=== PATIENT | male | born 1970 | race African-American/Black ===

== ENCOUNTER 2021-05-21 12:17 | Inpatient (IN) | payer OTHER ==
[2021-05-21] MEDS ORDERED: BISMUTH SUBSALICYLATE 524 MG/30 ML PO PRN (13:06)
[2021-05-21] MEDS ORDERED: LOPERAMIDE HCL 2 MG CAPSULE PO PRN (13:06)
[2021-05-21] MEDS ORDERED: IBUPROFEN 400 MG TABLET (FP) PO PRN (13:06)
[2021-05-21] MEDS ORDERED: MAGNESIUM CITRATE 300 ML BOTTLE PO PRN (13:06)
[2021-05-21] MEDS ORDERED: ACETAMINOPHEN 325 MG TABLET (FP) PO PRN ×2 (13:06)
[2021-05-21] MEDS ORDERED: MAGNESIUM HYDROX 2400MG/30ML ORAL SUSPENSION 30 ML CUP PO PRN (13:06)
[2021-05-21] MEDS ORDERED: MENTHOL/PHENOL 1 EACH UD MM PRN (13:06)
[2021-05-21] MEDS ORDERED: ONDANSETRON *ODT* 4 MG TABLET SL PRN (13:06)
[2021-05-21] MEDS ORDERED: MAG HYDROX/AL HYDROX/SIMETH 30 ML UNIT-DOSE CUP PO PRN (13:06)
[2021-05-21 13:49] VITALS: BMI 23.6
[2021-05-21 16:13] LABS: HEMOGLOBIN 12.2 GM/dL (11.7-16.9); MCH 30.6 pg (25.7-33.7); MCHC 32.9 g/dl (32.0-35.9); MEAN PLT VOLUME 8.8 fl (7.5-11.1); PLATELET COUNT 265 10^3/uL (134-434); RBC 3.98 M/mm3 (4.00-5.60); WHITE BLOOD COUNT 7.7 K/mm3 (4.0-10.0)
[2021-05-21] MEDS ORDERED: DEXTROSE 50%-WATER - 25 GM/50 ML VIAL IVPUSH PRN (16:27)
[2021-05-21 17:15] LABS: ALBUMIN 3.5 g/dl (3.4-5.0); CALCIUM 8.5 mg/dL (8.5-10.1)
[2021-05-21 17:16] LABS: BLOOD UREA NITROGEN 14.3 mg/dL (7-18)
[2021-05-21 17:19] LABS: CREATININE 1.1 mg/dL (0.55-1.3)
[2021-05-21 17:20] LABS: TOT PROT 7.5 g/dl (6.4-8.2)
[2021-05-21 17:21] LABS: BILIRUBIN,TOTAL 0.8 mg/dL (0.2-1)
[2021-05-21] MEDS: INSULIN (NOVOLOG) ASPART 100 UNITS/ML 10ML VIAL SQ SCH ×2 (17:52→22:33)
[2021-05-21] MEDS: hydrOXYzine PAMOATE 25 MG CAPSULE (FP) PO SCH ×3 (17:52→22:33)
[2021-05-21] MEDS: PRENATAL VITAMINS W/ FOLIC ACID TABLET (FP) PO SCH (17:52)
[2021-05-21] MEDS: amLODIPine BESYLATE 5 MG TABLET (FP) PO SCH (17:52)
[2021-05-21] MEDS: MELATONIN 5 MG TABLETS PO SCH (22:32)
[2021-05-21] MEDS: THIAMINE HCL 100 MG TABLET (FP) PO SCH (22:33)
[2021-05-22] MEDS: hydrOXYzine PAMOATE 25 MG CAPSULE (FP) PO SCH ×5 (05:28→22:16)
[2021-05-22] MEDS: INSULIN (NOVOLOG) ASPART 100 UNITS/ML 10ML VIAL SQ SCH (07:35)
[2021-05-22] MEDS ORDERED: diazePAM 5 MG TABLET PO PRN (09:41)
[2021-05-22] MEDS ORDERED: chlordiazePOXIDE HCL 25 MG CAPSULE PO PRN (09:43)
[2021-05-22] MEDS: chlordiazePOXIDE HCL 25 MG CAPSULE PO SCH ×3 (10:06→22:17)
[2021-05-22] MEDS: PRENATAL VITAMINS W/ FOLIC ACID TABLET (FP) PO SCH (10:06)
[2021-05-22] MEDS: METHOCARBAMOL 500 MG TABLET PO PRN ×2 (10:07→22:16)
[2021-05-22] MEDS: amLODIPine BESYLATE 5 MG TABLET (FP) PO SCH (10:07)
[2021-05-22] MEDS ORDERED: diazePAM 5 MG TABLET PO SCH (11:00)
[2021-05-22] MEDS: metoPROLOL SUCCINATE 25 MG TAB.SR.24H (FP) PO SCH (14:39)
[2021-05-22] MEDS: APIXABAN 5 MG TABLET PO SCH ×2 (14:39→22:16)
[2021-05-22] MEDS: MELATONIN 5 MG TABLETS PO SCH (22:15)
[2021-05-22] MEDS: ATORVASTATIN CA 40 MG TABLET (FP) PO SCH (22:16)
[2021-05-22] MEDS: THIAMINE HCL 100 MG TABLET (FP) PO SCH (22:16)
[2021-05-23] MEDS: chlordiazePOXIDE HCL 25 MG CAPSULE PO SCH ×4 (05:32→22:48)
[2021-05-23] MEDS: hydrOXYzine PAMOATE 25 MG CAPSULE (FP) PO SCH ×5 (05:32→23:24)
[2021-05-23] MEDS: PRENATAL VITAMINS W/ FOLIC ACID TABLET (FP) PO SCH (10:16)
[2021-05-23] MEDS: METHOCARBAMOL 500 MG TABLET PO PRN (10:16)
[2021-05-23] MEDS: metoPROLOL SUCCINATE 25 MG TAB.SR.24H (FP) PO SCH (10:16)
[2021-05-23] MEDS: amLODIPine BESYLATE 5 MG TABLET (FP) PO SCH (10:16)
[2021-05-23] MEDS: APIXABAN 5 MG TABLET PO SCH ×2 (10:16→22:48)
[2021-05-23 13:51] LABS: SGOT/AST 150 U/L (15-37); SGPT/ALT 84 U/L (13-61)
[2021-05-23 14:07] LABS: SARS-CoV-2 NAA Not Detected (Not Detected)
[2021-05-23] MEDS: MELATONIN 5 MG TABLETS PO SCH (22:48)
[2021-05-23] MEDS: ATORVASTATIN CA 40 MG TABLET (FP) PO SCH (22:48)
[2021-05-23] MEDS: THIAMINE HCL 100 MG TABLET (FP) PO SCH (22:48)
[2021-05-24] MEDS: hydrOXYzine PAMOATE 25 MG CAPSULE (FP) PO SCH ×2 (05:22→11:00)
[2021-05-24] MEDS: chlordiazePOXIDE HCL 25 MG CAPSULE PO SCH ×2 (05:23→10:59)
[2021-05-24] MEDS ORDERED: diazePAM 5 MG TABLET PO SCH (06:00)
[2021-05-24 09:19] VITALS: BP 153/96; PULSE 82; TEMP 97.1
[2021-05-24] MEDS: APIXABAN 5 MG TABLET PO SCH (10:59)
[2021-05-24] MEDS: metoPROLOL SUCCINATE 25 MG TAB.SR.24H (FP) PO SCH (11:00)
[2021-05-24] MEDS: PRENATAL VITAMINS W/ FOLIC ACID TABLET (FP) PO SCH (11:00)
[2021-05-24] MEDS: amLODIPine BESYLATE 5 MG TABLET (FP) PO SCH (11:00)
[2021-05-25] MEDS ORDERED: chlordiazePOXIDE HCL 10 MG CAPSULE PO PRN
[2021-05-25] MEDS ORDERED: chlordiazePOXIDE HCL 10 MG CAPSULE PO SCH (05:00)
[2021-05-25] MEDS ORDERED: diazePAM 5 MG TABLET PO SCH (06:00)
[2021-05-26] MEDS ORDERED: chlordiazePOXIDE HCL 10 MG CAPSULE PO SCH (05:00)
[2021-05-26] MEDS ORDERED: diazePAM 5 MG TABLET PO ONE (06:00)
[2021-05-27] MEDS ORDERED: chlordiazePOXIDE HCL 10 MG CAPSULE PO ONE (05:00)
== END 2021-05-24 09:48 | disposition left against medical advice (07) | DRG 770 ==
LOC: YASAS 12:17 → Y6N 15:10
PROVIDERS: ADMIT Allergy & Immunology; ATTEND Allergy & Immunology
PROC: HZ2ZZZZ Detoxification Services for Substance Abuse Treatment (ICD-10-PCS; principal; 2021-05-21)
DX: F10.230 Alcohol dependence with withdrawal, uncomplicated (principal); E11.9 Type 2 diabetes mellitus without complications; I48.91 Unspecified atrial fibrillation; I10 Essential (primary) hypertension; Z79.01 Long term (current) use of anticoagulants
CPT/HCPCS: 36415; 80053; 82962; 84450; 84460; 85027; 86780; 93005; 93010; C9803; U0003; U0005

== ENCOUNTER 2022-04-16 14:33 | Inpatient (IN) | payer OTHER ==
[2022-04-16 14:58] VITALS: BMI 28.1
[2022-04-16] MEDS ORDERED: ACETAMINOPHEN 325 MG TABLET (FP) PO PRN ×2 (16:23)
[2022-04-16] MEDS ORDERED: DICYCLOMINE HCL 10 MG CAPSULE PO PRN (16:23)
[2022-04-16] MEDS ORDERED: POLYETHYLENE GLYCOL (HEALTHYLAX) 3350 17 GM PACKET PO PRN (16:23)
[2022-04-16] MEDS ORDERED: NALOXONE HCL (KLOXXADO) 8 MG SPRAY NS PRN (16:23)
[2022-04-16] MEDS ORDERED: LOPERAMIDE HCL 2 MG CAPSULE PO PRN (16:23)
[2022-04-16] MEDS ORDERED: BISMUTH SUBSALICYLATE 524 MG/30 ML PO PRN (16:23)
[2022-04-16] MEDS ORDERED: ONDANSETRON *ODT* 4 MG TABLET SL PRN (16:23)
[2022-04-16] MEDS ORDERED: METHOCARBAMOL 500 MG TABLET PO PRN (16:23)
[2022-04-16] MEDS ORDERED: IBUPROFEN 600 MG TABLET (FP) PO PRN (16:23)
[2022-04-16] MEDS ORDERED: MAGNESIUM HYDROX 2400MG/30ML ORAL SUSPENSION 30 ML CUP PO PRN (16:23)
[2022-04-16] MEDS ORDERED: IBUPROFEN 400 MG TABLET (FP) PO PRN (16:23)
[2022-04-16] MEDS ORDERED: MAG HYDROX/AL HYDROX/SIMETH 30 ML UNIT-DOSE CUP PO PRN (16:23)
[2022-04-16] MEDS ORDERED: chlordiazePOXIDE HCL 25 MG CAPSULE PO PRN (16:25)
[2022-04-16] MEDS ORDERED: FOLIC ACID 1 MG TABLET (FP) PO SCH (16:30)
[2022-04-16] MEDS ORDERED: PRENATAL VITAMINS W/ FOLIC ACID TABLET (FP) PO SCH (16:30)
[2022-04-16] MEDS ORDERED: chlordiazePOXIDE HCL 25 MG CAPSULE PO SCH (17:00)
[2022-04-16] MEDS: chlordiazePOXIDE HCL 25 MG CAPSULE PO SCH ×2 (18:58→22:36)
[2022-04-16] MEDS: FOLIC ACID 1 MG TABLET (FP) PO SCH (18:58)
[2022-04-16] MEDS ORDERED: METOPROLOL TARTRATE 50 MG TABLET (FP) PO ONE (20:05)
[2022-04-16] MEDS: HYDROCHLOROTHIAZIDE 12.5 MG CAPSULE (FP) PO SCH (20:08)
[2022-04-16] MEDS: metoPROLOL SUCCINATE 25 MG TAB.SR.24H (FP) PO SCH (20:09)
[2022-04-16] MEDS: LISINOPRIL 20 MG TABLET PO SCH (20:09)
[2022-04-16] MEDS: INSULIN SLIDING SCALE (NOVOLOG) 1 VIAL SQ SCH (21:44)
[2022-04-16] MEDS: MELATONIN 5 MG TABLETS PO SCH (22:36)
[2022-04-16] MEDS: THIAMINE HCL 100 MG TABLET (FP) PO SCH (22:36)
[2022-04-16] MEDS: APIXABAN 5 MG TABLET PO SCH (22:36)
[2022-04-16] MEDS: ATORVASTATIN CA 40 MG TABLET (FP) PO SCH (22:36)
[2022-04-16] MEDS: BENZOCAINE/MENTHOL (CHLORASEPTIC ) LOZENGE MM PRN (22:37)
[2022-04-17] MEDS ORDERED: LISINOPRIL 5 MG TABLET PO ONE (00:12)
[2022-04-17] MEDS ORDERED: LISINOPRIL 20 MG TABLET PO ONE (04:52)
[2022-04-17] MEDS: chlordiazePOXIDE HCL 25 MG CAPSULE PO SCH ×4 (05:37→22:29)
[2022-04-17] MEDS: INSULIN SLIDING SCALE (NOVOLOG) 1 VIAL SQ SCH ×4 (06:18→22:28)
[2022-04-17] MEDS ORDERED: metoPROLOL SUCCINATE 25 MG TAB.SR.24H (FP) PO SCH (10:00)
[2022-04-17] MEDS: APIXABAN 5 MG TABLET PO SCH ×2 (10:18→22:28)
[2022-04-17] MEDS: FOLIC ACID 1 MG TABLET (FP) PO SCH (10:18)
[2022-04-17] MEDS: metoPROLOL SUCCINATE 25 MG TAB.SR.24H (FP) PO SCH (10:20)
[2022-04-17] MEDS: HYDROCHLOROTHIAZIDE 12.5 MG CAPSULE (FP) PO SCH (10:20)
[2022-04-17 13:04] LABS: HEMATOCRIT 47.1 % (35.4-49); HEMOGLOBIN 15.6 GM/dL (11.7-16.9); MCH 30.5 pg (25.7-33.7); MEAN CELL VOLUME 92.3 fl (80-96); MEAN PLT VOLUME 9.3 fl (7.5-11.1); PLATELET COUNT 64 10^3/uL (134-434); RDW 14.1 % (11.9-15.9); WHITE BLOOD COUNT 4.3 K/mm3 (4.0-10.0)
[2022-04-17 13:09] LABS: BLOOD UREA NITROGEN 13.3 mg/dL (7-18)
[2022-04-17 13:11] LABS: CREATININE 1.2 mg/dL (0.55-1.3)
[2022-04-17 13:13] LABS: BILIRUBIN,TOTAL 1.6 mg/dL (0.2-1)
[2022-04-17] MEDS: BENZOCAINE/MENTHOL (CHLORASEPTIC ) LOZENGE MM PRN (19:53)
[2022-04-17] MEDS: THIAMINE HCL 100 MG TABLET (FP) PO SCH (22:28)
[2022-04-17] MEDS: ATORVASTATIN CA 40 MG TABLET (FP) PO SCH (22:28)
[2022-04-17] MEDS: MELATONIN 5 MG TABLETS PO SCH (22:29)
[2022-04-18] MEDS: chlordiazePOXIDE HCL 25 MG CAPSULE PO SCH ×4 (05:44→22:25)
[2022-04-18] MEDS: INSULIN SLIDING SCALE (NOVOLOG) 1 VIAL SQ SCH ×4 (06:35→22:29)
[2022-04-18] MEDS: HYDROCHLOROTHIAZIDE 12.5 MG CAPSULE (FP) PO SCH (10:26)
[2022-04-18] MEDS: APIXABAN 5 MG TABLET PO SCH ×2 (10:26→22:25)
[2022-04-18] MEDS: LISINOPRIL 20 MG TABLET PO SCH (10:26)
[2022-04-18] MEDS: FOLIC ACID 1 MG TABLET (FP) PO SCH (10:26)
[2022-04-18] MEDS: ATORVASTATIN CA 40 MG TABLET (FP) PO SCH (22:25)
[2022-04-18] MEDS: THIAMINE HCL 100 MG TABLET (FP) PO SCH (22:25)
[2022-04-18] MEDS: MELATONIN 5 MG TABLETS PO SCH (22:25)
[2022-04-19] MEDS ORDERED: chlordiazePOXIDE HCL 10 MG CAPSULE PO PRN
[2022-04-19] MEDS: chlordiazePOXIDE HCL 10 MG CAPSULE PO SCH ×4 (05:42→22:15)
[2022-04-19] MEDS: INSULIN SLIDING SCALE (NOVOLOG) 1 VIAL SQ SCH ×4 (06:30→22:14)
[2022-04-19] MEDS: HYDROCHLOROTHIAZIDE 12.5 MG CAPSULE (FP) PO SCH (10:31)
[2022-04-19] MEDS: FOLIC ACID 1 MG TABLET (FP) PO SCH (10:31)
[2022-04-19] MEDS: APIXABAN 5 MG TABLET PO SCH ×2 (10:31→22:14)
[2022-04-19] MEDS: LISINOPRIL 20 MG TABLET PO SCH (10:31)
[2022-04-19] MEDS: THIAMINE HCL 100 MG TABLET (FP) PO SCH (22:14)
[2022-04-19] MEDS: ATORVASTATIN CA 40 MG TABLET (FP) PO SCH (22:14)
[2022-04-19] MEDS: MELATONIN 5 MG TABLETS PO SCH (22:14)
[2022-04-20] MEDS: chlordiazePOXIDE HCL 10 MG CAPSULE PO SCH ×2 (05:42→18:04)
[2022-04-20] MEDS: INSULIN SLIDING SCALE (NOVOLOG) 1 VIAL SQ SCH ×4 (06:28→22:41)
[2022-04-20] MEDS: LISINOPRIL 20 MG TABLET PO SCH (10:17)
[2022-04-20] MEDS: APIXABAN 5 MG TABLET PO SCH ×2 (10:17→22:38)
[2022-04-20] MEDS: HYDROCHLOROTHIAZIDE 12.5 MG CAPSULE (FP) PO SCH (10:17)
[2022-04-20] MEDS: FOLIC ACID 1 MG TABLET (FP) PO SCH (10:17)
[2022-04-20] MEDS: ATORVASTATIN CA 40 MG TABLET (FP) PO SCH (22:38)
[2022-04-20] MEDS: MELATONIN 5 MG TABLETS PO SCH (22:38)
[2022-04-20] MEDS: THIAMINE HCL 100 MG TABLET (FP) PO SCH (22:53)
[2022-04-21] MEDS ORDERED: chlordiazePOXIDE HCL 10 MG CAPSULE PO ONE (05:00)
[2022-04-21] MEDS: INSULIN SLIDING SCALE (NOVOLOG) 1 VIAL SQ SCH ×2 (07:03→12:03)
[2022-04-21] MEDS: APIXABAN 5 MG TABLET PO SCH (10:05)
[2022-04-21] MEDS: FOLIC ACID 1 MG TABLET (FP) PO SCH (10:05)
[2022-04-21] MEDS: HYDROCHLOROTHIAZIDE 12.5 MG CAPSULE (FP) PO SCH (10:05)
[2022-04-21] MEDS: LISINOPRIL 20 MG TABLET PO SCH (10:05)
[2022-04-21 13:09] LABS: CALCIUM 10.3 mg/dL (8.5-10.1)
[2022-04-21 13:10] LABS: BLOOD UREA NITROGEN 16.3 mg/dL (7-18)
[2022-04-21 13:13] LABS: CREATININE 1.2 mg/dL (0.55-1.3)
[2022-04-21 13:15] LABS: TOT PROT 6.4 g/dl (6.4-8.2)
[2022-04-21 13:16] LABS: ALBUMIN 3.4 g/dl (3.4-5.0)
[2022-04-21 13:18] LABS: BILIRUBIN,TOTAL 0.3 mg/dL (0.2-1)
[2022-04-21 13:28] VITALS: BP 137/83; PULSE 87; RESP 18; TEMP 97.7
== END 2022-04-21 13:28 | disposition other institution (70) | DRG 775 ==
LOC: YASAS 14:33 → Y3N 18:11
PROVIDERS: ADMIT Allergy & Immunology; ATTEND Surgery
PROC: HZ2ZZZZ Detoxification Services for Substance Abuse Treatment (ICD-10-PCS; principal; 2022-04-16)
DX: F10.230 Alcohol dependence with withdrawal, uncomplicated (principal); D69.6 Thrombocytopenia, unspecified; I10 Essential (primary) hypertension; I48.20 Chronic atrial fibrillation, unspecified; E78.5 Hyperlipidemia, unspecified; E11.65 Type 2 diabetes mellitus with hyperglycemia; Z79.84 Long term (current) use of oral hypoglycemic drugs; E80.6 Other disorders of bilirubin metabolism; R74.01 Elevation of levels of liver transaminase levels
CPT/HCPCS: 36415; 80053; 82962; 85027; 86780; 87811; 93005; 93010; C9803-CS; U0003; U0005